=== PATIENT | male | born 1995 ===

== ENCOUNTER 2018-09-03 13:51 | Inpatient (IN) | payer OTHER, SELFPAY ==
[~2018-09-03 13:51] MED LIST: Iopamidol 370 76% 100 ML VIAL ONE; Iopamidol 370 76% 50 ML VIAL FS ONE
[2018-09-03] MEDS ORDERED: Metoprolol Tartrate 5 MG/5 ML VIAL ONE (13:53)
--- NOTE | 2018-09-03 14:03 | RAD ---
FPortable chest radiograph: 09/03/2018 COMPARISON: None HISTORY:Chest pain FINDINGS: Lungs are clear. Heart and mediastinal contours unremarkable. IMPRESSION: No acute findings.
[2018-09-03] MEDS ORDERED: Morphine 4 MG/ML VIAL ONE (14:06)
[2018-09-03 14:20] LABS: #Basophils 0.1 thou/uL (0.0-0.2); #Eosinphils 0.1 thou/uL (0.0-0.7); #Lymphocytes 3.2 thou/uL (1.20-3.40); #Monocytes 0.9 thou/uL (0.11-0.59); #Neutrophils 9.4 thou/uL (1.40-6.50); %Basophils 0.5 % (0.0-1.0); %Eosinophils 0.8 % (0.0-10.0); %Lymphocytes 23.4 % (21.0-51.0); %Monocytes 6.4 % (0.0-10.0); %Neutrophils 68.9 % (42.0-75.0); Mean Corpuscular HGB CONC 34.9 g/dL (32.0-36.0); Mean Corpuscular Hemoglobin 31.7 pg (27.0-31.0); Mean Corpuscular Volume 90.8 fL (78.0-98.0); Mean Platelet Volume 7.6 fL (7.4-10.4); Platelet Count 311 thou/uL (130-400); RBC Distribution Width 11.1 % (11.5-14.5); Red Blood Cell (RBC) Count 5.37 mill/uL (4.70-6.10); White Blood Cell (WBC) Count 13.7 thou/uL (4.8-10.8)
[2018-09-03 14:27] LABS: INR-International Normal Ratio 1.2; Prothrombin Time 15.1 SEC (12.0-14.7)
[2018-09-03] MEDS ORDERED: Fentanyl 100 MCG/2 ML VIAL ONE (14:28)
[2018-09-03] MEDS ORDERED: Midazolam HCl 2 mg/2 ml Vial ONE (14:28)
[2018-09-03 14:30] LABS: PTT 125.6 SEC (22.9-36.1)
[2018-09-03] MEDS ORDERED: Nitroglycerin 100MG/250ML BOT 250 ML ONE (14:32)
[2018-09-03] MEDS ORDERED: Verapamil 5 MG/2 ML VIAL ONE (14:32)
[2018-09-03] MEDS ORDERED: Adenosine 6 MG/2 ML VIAL ONE (14:32)
[2018-09-03] MEDS ORDERED: Atropine Sulfate 1 mg/10 ml Syringe ONE (14:33)
[2018-09-03 14:39] LABS: ALT (SGPT) 19 U/L (8-55); AST (SGOT) 26 U/L (5-34); Albumin 4.9 g/dL (3.5-5.0); Alkaline Phosphatase 113 U/L (40-150); Anion Gap 21 mmol/L (10-20); BUN (Urea Nitrogen) 9 mg/dL (8.9-20.6); Bilirubin, Total 1.5 mg/dL (0.2-1.2); CK (CPK) 187 U/L (30-200); Calc. Creatinine Clearance 0 mL/min (70-130); Calcium 10.7 mg/dL (7.8-10.44); Carbon Dioxide 16 mmol/L (22-29); Chloride 103 mmol/L (98-107); Estimated GFR-MDRD Greater than 90; Globulin 3.5 g/dL (2.4-3.5); Glucose 104 mg/dL (70-105); Lipase 283 U/L (8-78); Protein, Total 8.4 g/dL (6.0-8.3); Sodium 137 mmol/L (136-145)
--- NOTE | 2018-09-03 14:43 | CT ---
FCT pulmonary angiogram of chest with contrast: 09/03/2018 HISTORY: 22-year-old male with substernal chest pain. TECHNIQUE: IV contrast bolus injection of 100 mm Isovue-370. 3-D MIP reconstructions. FINDINGS: Lungs are clear. No pleural effusion or pneumothorax. Trachea and bronchi are patent and clear. No pu lmonary thromboembolism. Not enough IV contrast in the thoracic aorta to evaluate for aortic dissecti on. No thoracic aortic aneurysm. No pericardial effusion. Very small sliding hiatal hernia. IMPRESSION: 1. No pulmonary thromboembolism. 2. Very Small sliding hiatal hernia. 3. Otherwise negative.
[2018-09-03] MEDS ORDERED: Clopidogrel Bisulfate 300 MG TAB ONE (14:53)
--- NOTE | 2018-09-03 14:55 | CON ---
DATE OF CONSULTATION: 09/03/2018 CHIEF COMPLAINT: Acute myocardial infarction. HISTORY OF PRESENT ILLNESS: Mr. Duran is a pleasant 22-year-old gentleman with no significant past medical history except for acid reflux, who states he began having chest pain yesterday. The pain was intermittent, then became severe today and constant. He presented to the emergency room with acute ST-segment elevation myocardial infarction. No risk factors for underlying coronary artery disease. PAST MEDICAL HISTORY: As above. SOCIAL HISTORY: He vapes. No alcohol use. He is currently single. MEDICATIONS: Protonix. REVIEW OF SYSTEMS: A 10-point review of systems is reviewed and as above, otherwise negative. PHYSICAL EXAMINATION: VITAL SIGNS: Blood pressure 149/101, respirations 20, pulse 90. GENERAL: Patient is a pleasant male, who is in no acute distress. The patient appears their stated age. NEUROLOGIC: The patient is alert and oriented x3 with no focal neurologic deficits. HEENT: Sclerae without icterus. Mouth has moist mucous membranes with normal pallor. NECK: No JVD. Carotid upstroke brisk. No bruits bilaterally. LUNGS: Clear to auscultation with unlabored respirations. BACK: No scoliosis or kyphosis. CARDIAC: Regular rate and rhythm with normal S1 and S2. No S3 or S4 noted. No significant rubs, murmurs, thrills, or gallops noted throughout the precordium. PMI is not displaced. There is no parasternal heave. ABDOMEN: Soft, nontender, nondistended. No peritoneal signs present. No hepatosplenomegaly. No abnormal striae. EXTREMITIES: 2+ femoral and 2+ dorsalis pedis pulses. No cyanosis, clubbing, or edema. SKIN: No gross abnormalities. DIAGNOSTIC STUDIES: EKG shows normal sinus rhythm, ST-T wave changes suggesting acute myocardial infarction noted inferiorly with reciprocal changes. Preliminary CT scan of chest negative for PE or dissection. IMPRESSION: Acute myocardial infarction. RECOMMENDATIONS: I did recommend prior to proceeding with angiography to proceed with a CT scan of the chest given no risk factors. I was concerned about pulmonary embolism versus dissection given significant hypertension, although may have been due to pain. This was first performed rather quickly and preliminarily was negative. I then will proceed with urgent coronary angiography, possible PCI. I discussed procedure in full detail with Juan Carlos. Risks included, but not limited to the following: , stroke, VT, need for emergency surgery, loss of limb, bleeding, and infection, as well as a reaction to the dye causing kidney failure and needing long-term dialysis. I also discussed the risks of PCI to include all of the above including coronary dissection and perforation in addition to acute stent thrombosis and restenosis. All questions about the procedure were answered. Given the above, the patient agreed to proceed with coronary angiography and possible PCI. All questions were answered. I also discussed drug coated and non drug coated stent placement. There were no contraindications to proceed if needed. Further recommendations pending the above. Job ID: [id number]
[2018-09-03 15:04] LABS: CKMB 4.7 ng/mL (0-6.6)
[2018-09-03] MEDS ORDERED: Heparin 10,000 UNITS/1 ML VIAL ONE ×2 (15:12→19:23)
[2018-09-03] MEDS ORDERED: ISOVUE-370 76%-LOCM 1 ML ONE (15:17)
[2018-09-03] MEDS ORDERED: Morphine 2 MG/ML SYRINGE ONE (15:19)
[2018-09-03] MEDS ORDERED: Aggrastat 12.5 MG/250 ML 250 ML ONE (15:39)
[2018-09-03] MEDS ORDERED: Morphine 2 MG/ML SYRINGE SLOW IVP PRN (15:52)
[2018-09-03] MEDS ORDERED: Mag-Al 1200 mg/1200 mg/30 ML UDCUP PO PRN (15:52)
[2018-09-03] MEDS ORDERED: Milk Of Magnesia 30 ML UDCUP PO PRN (15:52)
[2018-09-03] MEDS ORDERED: Nitroglycerin 0.4 MG TAB (25 Tab Bottle) SL PRN (15:52)
[2018-09-03] MEDS ORDERED: Aggrastat 12.5 MG/250 ML 250 ML IVPB SCH (16:00)
[2018-09-03 16:26] VITALS: BMI 37.1
[2018-09-03] MEDS: Sodium Chloride 0.9% 1,000 ML IV SCH (18:04)
[2018-09-04] MEDS: Sodium Chloride 0.9% 1,000 ML IV SCH (01:35)
[2018-09-04 01:41] LABS: #Basophils 0.1 thou/uL (0.0-0.2); #Eosinphils 0.1 thou/uL (0.0-0.7); #Lymphocytes 1.4 thou/uL (1.20-3.40); #Neutrophils 11.8 thou/uL (1.40-6.50); %Basophils 0.4 % (0.0-1.0); %Eosinophils 0.5 % (0.0-10.0); %Monocytes 6.9 % (0.0-10.0); %Neutrophils 82.2 % (42.0-75.0); Mean Corpuscular HGB CONC 35.5 g/dL (32.0-36.0); Mean Corpuscular Hemoglobin 32.6 pg (27.0-31.0); Mean Corpuscular Volume 91.7 fL (78.0-98.0); Mean Platelet Volume 7.5 fL (7.4-10.4); Platelet Count 249 thou/uL (130-400); RBC Distribution Width 11.1 % (11.5-14.5); White Blood Cell (WBC) Count 14.3 thou/uL (4.8-10.8)
[2018-09-04 02:08] LABS: ALT (SGPT) 57 U/L (8-55); AST (SGOT) 299 U/L (5-34); Albumin 4.3 g/dL (3.5-5.0); Alkaline Phosphatase 95 U/L (40-150); Anion Gap 15 mmol/L (10-20); BUN (Urea Nitrogen) 7 mg/dL (8.9-20.6); Bilirubin, Total 1.7 mg/dL (0.2-1.2); Calc. Creatinine Clearance 245 mL/min (70-130); Calcium 9.6 mg/dL (7.8-10.44); Carbon Dioxide 20 mmol/L (22-29); Chloride 107 mmol/L (98-107); Estimated GFR-MDRD Greater than 90; Glucose 97 mg/dL (70-105); Protein, Total 7.3 g/dL (6.0-8.3); Sodium 138 mmol/L (136-145)
[2018-09-04 02:22] LABS: CKMB 83.8 ng/mL (0-6.6)
[2018-09-04 02:26] LABS: Troponin I 80.108 ng/mL (< 0.028)
[2018-09-04 08:42] LABS: CKMB 46.2 ng/mL (0-6.6); Critical Call CKMB RESULT DECREASING
[2018-09-04 09:08] LABS: Troponin I 53.434 ng/mL (< 0.028)
[2018-09-04] MEDS: Aspirin Chewable 81 MG TAB PO SCH (09:20)
[2018-09-04] MEDS: Clopidogrel Bisulfate 75 MG TAB PO SCH (09:20)
--- NOTE | 2018-09-04 10:55 | PDOC.CTH ---
Cardiology Progress Note - Subjective No compalints. Feels good. - Objective Vital Signs Temp Pulse Resp BP Pulse Ox 09/04/18 10:00 94 20 115/70 100 09/04/18 09:00 93 19 113/67 100 09/04/18 08:00 91 18 120/78 100 09/04/18 07:56 100 09/04/18 07:00 99.1 F 79 16 107/75 100 09/04/18 06:00 86 19 112/88 100 09/04/18 05:00 87 16 117/73 100 09/04/18 04:00 98.9 F 81 14 125/73 100 09/04/18 03:00 78 15 116/76 100 09/04/18 02:00 87 15 126/74 100 09/04/18 01:30 84 14 114/67 100 09/04/18 01:00 69 19 121/66 100 09/04/18 00:45 82 16 123/73 100 09/04/18 00:30 71 18 122/70 100 09/04/18 00:15 77 18 119/74 100 09/04/18 00:00 99.5 F 69 25 H 119/66 100 09/03/18 23:45 79 25 H 115/63 100 09/03/18 23:30 71 23 H 120/69 100 09/03/18 23:15 68 25 H 122/66 100 09/03/18 23:00 74 21 H 119/68 100 Weight 251 lb 12.286 oz 09/03/18 09/04/18 09/05/18 06:59 06:59 06:59 Intake Total 1609 300 Output Total 4200 1800 Balance -2591 -1500 - Physical Examination General/Neuro: alert & oriented x3, NAD Neck: carotid US brisk, no JVD present Lungs: CTA, unlabored respirations Heart: RRR Abdomen: NT/ND, soft Extremities: + femoral B - Labs Result Diagrams: 09/04/18 01:36 09/04/18 01:36 Troponin/CKMB CK-MB (CK-2) 46.2 ng/mL (0-6.6) H* 09/04/18 07:58 Troponin I 53.434 ng/mL (< 0.028) H* 09/04/18 07:58 - Assessment/Plan AMI Etiology unknown Pt with h/o vaping; unknown if nicotine noted Add coreg, statin check UDS Transfer to floor
[2018-09-04 13:26] LABS: Amphetamine Not Detected (NotDetected); Barbiturates Screen Not Detected (NotDetected); Benzodiazepine Screen Not Detected (NotDetected); Cocaine Metabolite Screen Not Detected (NotDetected); Medtox Control Line Valid? VALID (VALID); Medtox Reader # READER 4; Methadone Not Detected (NotDetected); Methamphetamine Not Detected (NotDetected); Opiate Screen Detected (NotDetected); Oxycodone Screen Not Detected (NotDetected); Phencyclidine (PCP) Not Detected (NotDetected); THC/Cannabinoid Screen Not Detected (NotDetected); Tricyclic Screen Not Detected (NotDetected)
[2018-09-04] MEDS: Atorvastatin Calcium 40 MG TAB PO SCH (21:28)
[2018-09-04] MEDS: Carvedilol 3.125 MG TAB PO SCH (21:28)
[2018-09-05 06:30] LABS: Cardiac Risk 6.1 (Less than 4.5)
[2018-09-05] MEDS: Clopidogrel Bisulfate 75 MG TAB PO SCH (09:19)
[2018-09-05] MEDS: Carvedilol 3.125 MG TAB PO SCH ×2 (09:19→20:59)
[2018-09-05] MEDS: Aspirin Chewable 81 MG TAB PO SCH (09:19)
--- NOTE | 2018-09-05 14:52 | PDOC.CTH ---
Cardiology Progress Note - Subjective No complaints. - Objective Vital Signs Temp Pulse Pulse Pulse Resp BP BP 09/05/18 11:43 99 83 106/58 L 111/67 09/05/18 08:00 99.5 F 94 18 09/05/18 07:00 99.8 F H 09/05/18 04:00 98.4 F 81 18 BP Pulse Ox Pulse Ox Pulse Ox 09/05/18 11:43 98 98 09/05/18 08:00 100 09/05/18 07:00 09/05/18 04:00 108/54 L 100 Weight 251 lb 12.286 oz 09/04/18 09/05/18 09/06/18 06:59 06:59 06:59 Intake Total 1609 2256.1 410 Output Total 4200 2150 800 Balance -2591 106.1 -390 - Physical Examination General/Neuro: alert & oriented x3, NAD Neck: carotid US brisk, no JVD present Lungs: CTA, unlabored respirations Heart: PMI normal, RRR Abdomen: NT/ND, soft Extremities: + femoral B - Telemetry Telemetry Rhythm: sr - Labs Result Diagrams: 09/04/18 01:36 09/04/18 01:36 Troponin/CKMB CK-MB (CK-2) 46.2 ng/mL (0-6.6) H* 09/04/18 07:58 Troponin I 53.434 ng/mL (< 0.028) H* 09/04/18 07:58 - Assessment/Plan AMI Seek a secondary cause Will consult with hematology for a hypercoaguable cause Recommend EVERT to assess for emboli. R/B discused with pt. Mother present. Secondary RF modification
[2018-09-05 17:31] LABS: Prothrombin Time 13.1 SEC (12.0-14.7)
[2018-09-05 17:32] LABS: PTT 28.7 SEC (22.9-36.1)
[2018-09-05 17:34] LABS: D-Dimer Test 0.43 *mcg/mL (0.27-0.43)
[2018-09-05] MEDS: Atorvastatin Calcium 40 MG TAB PO SCH (20:59)
--- NOTE | 2018-09-05 23:44 | CON ---
DATE OF CONSULTATION: REASON FOR CONSULT: MT. HISTORY OF PRESENT ILLNESS: Mr. 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 He had acute ST-elevation. Dr. Guzman admitted the patient and he underwent cardiac catheterization with stent placement. The patient has no significant medical history. He did have a bleeding ulcer approximately 1 year ago and is currently on Protonix. He has no maternal history of coronary artery disease or thrombotic events. His father was [place] and his medical history is unknown. He denies any tobacco or illicit drug use or anabolic steroids. He did have a CT angio of his chest, which was negative for pulmonary embolism. He denies any pain at this time. History is obtained from patient and his mother at bedside. PAST MEDICAL HISTORY: Bleeding gastric ulcer in 2018. PAST SURGICAL HISTORY: None. ALLERGIES: NO KNOWN DRUG ALLERGIES. HOME MEDICATIONS: Protonix. FAMILY HISTORY: Again, no history of cardiac disease or thrombotic events in maternal. Unknown paternal history. REVIEW OF SYSTEMS: 10-point review of systems is negative except for noted above. PHYSICAL EXAMINATION: VITAL SIGNS: The patient is afebrile. Heart rate 97, respiratory rate 25, BP is 118/78, he is 100% on room air. GENERAL: This is a well-developed, well-nourished male, in no acute distress. HEENT: Normocephalic, atraumatic. Pupils are equal and reactive to light. NECK: Supple. CARDIOVASCULAR: Regular rate and rhythm. LUNGS: Clear. ABDOMEN: Soft, nontender. Bowel sounds are positive. There is no organomegaly. EXTREMITIES: No clubbing, cyanosis, or edema. SKIN: No rash. HEMATOLOGICAL: No petechiae or purpura. NEUROLOGICAL: Nonfocal. PSYCHIATRIC: The patient is alert, oriented, and appropriate. PERTINENT LABS AND X-RAYS: Current WBCs are 13.7, hemoglobin 17, hematocrit 48.7, platelet count is 311,000. He has 68% neutrophils, 23% lymphocytes. Sodium is 138, potassium 4.0, chloride 107, CO2 is 20, BUN is 7, creatinine 0.77, calcium is 9.6, bilirubin is 1.7, AST is 299, ALT is 57, alkaline phosphatase is 95. Troponin is 53. Serum total protein is 7.3, albumin 4.3, globulin 3.0, and lipase is 283. ASSESSMENT: 1. Acute myocardial infarction, query cause. 2. Status post stent placement with anticoagulation from heparin. DISCUSSION: The patient is a 22-year-old gentleman with an acute MT, he has no significant contributing factors to explain his MT at such an early age. PLAN: A thrombophilia panel to rule out any clotting disorder. He will have a EVERT to assess for emboli. He does have mildly elevated transaminases, would trend those. Patient and mother can follow up in the outpatient setting for the results of the profiles; will take a week to return. They are planning to seek further opinions in [place] where his mother lives. Case has been discussed with Dr. Loomis and Dr. Rice. Thank you for the consult. Job ID: [id number]
[2018-09-06] MEDS ORDERED: Benzocaine 20% Spray 60 ML CAN ONE (07:17)
[2018-09-06] MEDS: Aspirin Chewable 81 MG TAB PO SCH (08:06)
[2018-09-06] MEDS: Clopidogrel Bisulfate 75 MG TAB PO SCH (08:06)
[2018-09-06] MEDS: Carvedilol 3.125 MG TAB PO SCH (08:06)
--- NOTE | 2018-09-06 09:47 | DIS ---
DATE OF ADMISSION: 09/03/2018 DATE OF DISCHARGE: 09/06/2018 DISCHARGE DIAGNOSIS: Acute myocardial infarction. PROCEDURE: Coronary angiography with stent placement to the right coronary artery and transesophageal echocardiography. COMPLICATIONS: None. HOSPITAL COURSE: Mr. Duran is a very pleasant 22-year-old gentleman, who recently had acute onset chest pain. He was found to have ST-segment elevation SD. He was brought urgently for coronary angiography and was found to have near complete occlusion of the right coronary artery. He underwent successful stent placement without complication. He was placed in the ICU overnight. Transfer orders were noted at telemetry monitoring. Based on his young age with no risk factors, I did consult with Hematology about potential coagulopathy. He also underwent EVERT on 09/06/2018. There was negative for etiology for emboli. The patient was discharged in stable condition. DISCHARGE MEDICATIONS: 1. Aspirin 81 q.a.m. 2. Lipitor 40 at bedtime. 3. Carvedilol 3.125 b.i.d. 4. Plavix 75 q.a.m. CONDITION ON DISCHARGE: Stable. FOLLOWUP: Follow up with Dr. Guzman in 1 to 2 weeks. Job ID: [id number]
--- NOTE | 2018-09-06 10:01 | OP ---
DATE OF PROCEDURE: 09/06/2018 PREPROCEDURE DIAGNOSES: Recent myocardial infarction and rule out embolic phenomena. POSTPROCEDURE DIAGNOSIS: No significant vegetation, masses, or source of emboli. PROCEDURE PERFORMED: Transesophageal echocardiography. DESCRIPTION OF PROCEDURE: The patient was consented for the procedure. I discussed the procedure in full detail with Mr. Duran. Risks include, but not limited to the following: Damage to teeth, mouth, back of throat, damage to esophagus, as well as reaction to medication. All questions were answered. Given the above, the patient agreed to proceed with above procedure. FINDINGS: Overall LVEF estimated at 45% to 50%. The mitral valve appears normal. No mass or vegetation present. Left atrial appendage also well visualized with no mass or vegetation present. Velocities appeared normal. The left atrium also appears normal. The aortic valve is well visualized with normal excursion. The RA and RV are of normal size and function. The tricuspid valve is well visualized with no masses or vegetation. No mass or vegetation present along the pulmonic valve. Bubble study performed with no [id number] gradient. Aorta is free of significant atherosclerosis. IMPRESSION: No source of emboli present from a cardiac standpoint. Job ID: [id number]
[2018-09-06 12:29] VITALS: TEMP 98.1
[2018-09-06 12:56] LABS: Protein C Activity 110 % (78-152)
[2018-09-06 15:30] VITALS: BP 125/85
--- NOTE | 2018-09-06 19:25 | CON ---
DATE OF CONSULTATION: REASON FOR CONSULTATION: Myocardial infarction. HISTORY OF PRESENT ILLNESS: Please see nurse practitioner, Hialry Grey's consultation report for full consult. In brief, the patient is a 22-year-old male with no past medical history, presenting with ST-elevation DE. The patient was seen by Dr. Guzman and taken to the catheterization lab and had a stent placement in his RCA. We were consulted for workup of hypercoagulable state. So far, workup has revealed a normal TTE and EVERT with only mild elevated cholesterol. No other significant finding. PAST MEDICAL HISTORY: Please see Hilary Grey's note. PAST SURGICAL HISTORY: Please see Hilary Grey's note. ALLERGIES: PLEASE SEE HILARY GREY'S NOTE. MEDICATIONS: Please see Hilary Grey's note. REVIEW OF SYSTEMS: Please see Hilary Grey's note. PHYSICAL EXAMINATION: Vital signs and examination: Please see Hilary Grey's note. ASSESSMENT AND PLAN: A 22-year-old male with no medical history, presenting with ST-elevation myocardial infarction. The patient has no signs of endocarditis or anything else wrong with the heart on echocardiogram, and only minimally elevated cholesterol, so I do not expect a familial hypercholesterolemia. Hypercoagulable states cause arterial thromboses and emboli including nephrotic syndrome and antiphospholipid syndrome. Antiphospholipid syndrome profile has been requested, and we will follow these labs up as an outpatient. His albumin is normal, so I do not expect nephrotic syndrome; however, we will check urine for protein. Homocysteine level is also normal. I had a long discussion with the patient's mother in regard to the current testing, and she would also like a second opinion from a manager management at [facility] in [place], where she works. We will follow the patient up as an outpatient once the lab work returns. Job ID: [id number]
[2018-09-07 11:04] LABS: Factor VIII Test 225.3 % ACTIVE (56-157)
[2018-09-07 17:22] LABS: Cardiolipin IgA Ab 1.3 APL-U/mL (<14 Negative); Cardiolipin IgG Ab 1.2 GPL-U/mL (<10 Negative); Cardiolipin IgM Ab 1.3 MPL-U/mL (<10 Negative); EliA APS New Method **** NEW METHOD ****
[2018-09-08 09:39] LABS: HEX PHOS LA Tube 1 57.4 SEC; HEX PHOS LA Tube 2 49.9 SEC; Hexagonal Phospholipid Neut 7.5 SEC (0-8.0)
== END 2018-09-06 14:15 | disposition home or self-care (01) | DRG 247 ==
LOC: ERS 13:51 → CCL 14:26 → CCU 15:57
PROVIDERS: ADMIT Internal Medicine Cardiovascular Disease; ATTEND Internal Medicine Cardiovascular Disease
PROC: 027034Z Dilation of Coronary Artery, One Artery with Drug-eluting Intraluminal Device, Percutaneous Approach (ICD-10-PCS; principal; 2018-09-03)
PROC: B24BZZ4 Ultrasonography of Heart with Aorta, Transesophageal (ICD-10-PCS; 2018-09-06)
DX: I21.3 ST elevation (STEMI) myocardial infarction of unspecified site (principal); K21.9 Gastro-esophageal reflux disease without esophagitis
CPT/HCPCS: 36415; 71045; 71275; 76942; 80053; 80061; 80306; 81003; 81240; 81241; 82550; 82553; 83090; 83690; 84484; 85025; 85240; 85300; 85303; 85305; 85307; 85347; 85379; 85598; 85610; 85730; 86147; 92928; 92978; 93005; 93306; 93312; 93454; 93567; 93798; 96374; 96375; 99152; 99153; C1725; C1753; C1769; C1874; C1887; C9600; J0153; J0461; J1644; J2250; J2270; J3010; J3246; Q9966; Q9967